=== PATIENT | male | born 1995 ===

== ENCOUNTER 2017-07-06 02:04 | Observation (INO) | payer BC, SELFPAY ==
[2017-07-06 02:52] LABS: #Eosinphils 0.3 thou/uL (0.0-0.7); #Lymphocytes 1.5 thou/uL (1.20-3.40); #Monocytes 0.4 thou/uL (0.11-0.59); #Neutrophils 4.2 thou/uL (1.40-6.50); %Basophils 0.7 % (0.0-1.0); %Eosinophils 4.4 % (0.0-10.0); %Lymphocytes 22.9 % (28.0-48.0); %Monocytes 6.3 % (0.0-4.0); %Neutrophils 65.7 % (31.0-61.0); Hemoglobin 16.1 g/dL (14.0-18.0); Mean Corpuscular HGB CONC 35.2 g/dL (32.0-36.0); Mean Corpuscular Hemoglobin 31.4 pg (25.0-35.0); Mean Corpuscular Volume 89.2 fl (77.0-87.0); Mean Platelet Volume 7.8 fL (7.4-10.4); Platelet Count 247 thou/uL (130-400); RBC Distribution Width 11.4 % (11.5-14.5); Red Blood Cell (RBC) Count 5.12 mill/uL (4.00-5.20); White Blood Cell (WBC) Count 6.4 thou/uL (4.8-10.8)
[2017-07-06 03:11] LABS: Amphetamine Not Detected (NotDetected); Barbiturates Screen Not Detected (NotDetected); Benzodiazepine Screen Not Detected (NotDetected); Cocaine Metabolite Screen Not Detected (NotDetected); Medtox Control Line Valid? VALID (VALID); Medtox Reader # READER 4; Methadone Not Detected (NotDetected); Methamphetamine Not Detected (NotDetected); Opiate Screen Not Detected (NotDetected); Oxycodone Screen Not Detected (NotDetected); Phencyclidine (PCP) Not Detected (NotDetected); THC/Cannabinoid Screen Not Detected (NotDetected); Tricyclic Screen Not Detected (NotDetected)
[2017-07-06 03:11] LABS: Acetaminophen Less than 6.0 mcg/mL (10.0-30.0); Alcohol 262 mg/dL (Less than 10); Salicylate Less than 8.0 mg/dL (15.0-30.0)
[2017-07-06 03:23] LABS: ALT (SGPT) 44 U/L (8-55); AST (SGOT) 63 U/L (5-34); Albumin 4.6 g/dL (3.5-5.0); Alcohol 261 mg/dL (Less than 10); Alkaline Phosphatase 77 U/L (Less than 750); Anion Gap 16 mmol/L (10-20); BUN (Urea Nitrogen) 10 mg/dL (8.9-20.6); Bilirubin, Total 0.8 mg/dL (0.2-1.2); Calc. Creatinine Clearance 0 mL/min (70-130); Calcium 9.7 mg/dL (7.8-10.44); Carbon Dioxide 25 mmol/L (22-29); Chloride 105 mmol/L (98-107); Estimated GFR-MDRD Greater than 90; Globulin 2.9 g/dL (2.4-3.5); Glucose 107 mg/dL (70-105); Potassium 3.7 mmol/L (3.5-5.1); Protein, Total 7.5 g/dL (6.0-8.3); Sodium 142 mmol/L (136-145)
[2017-07-06 03:53] LABS: Lipase 13 U/L (8-78)
[2017-07-06 04:06] LABS: CK (CPK) 5549 U/L (30-200)
[2017-07-06 06:18] VITALS: BMI 25.4
[2017-07-06] MEDS ORDERED: Ondansetron ODT 4 MG TAB PO PRN (06:28)
[2017-07-06] MEDS ORDERED: Bisacodyl 5 MG TAB PO PRN (06:28)
[2017-07-06] MEDS ORDERED: Acetaminophen 325 MG TAB PO PRN (06:28)
[2017-07-06] MEDS ORDERED: Mag-Al 1200 mg/1200 mg/30 ML UDCUP PO PRN (06:28)
[2017-07-06] MEDS ORDERED: Sodium Chloride 0.9% 1,000 ML IV SCH (06:30)
[2017-07-06] MEDS ORDERED: FLU VACC QS2017-18 36 mo. & older 0.5 ML SYRINGE IM ONE (06:45)
[2017-07-06 06:58] LABS: Bilirubin Negative (Negative); Blood, Urine Trace (Negative); Clarity CLEAR (Clear); Glucose, Urine (Dipstick) Negative (Negative); Leukocyte Negative (Negative); Nitrite Negative (Negative); Protein, Urine (Dipstick) Negative (Neg-Trace); Specific Gravity, Urine 1.006 (1.002-1.036); Urobilinogen 0.2 mg/dL (0.2-1.0)
[2017-07-06 07:00] LABS: Bacteria/HPF None Seen HPF (None Seen); Hyaline Casts/LPF 0-3 HYALINE CAST LPF (0-3 Hyaline); Pathc Cast-AUWi Flag 0.13 (0-2.49); RBC/HPF None Seen HPF (0-3); Squamous Epithelial 0-3 HPF (0-3); WBC/HPF 0-3 HPF (0-3)
[2017-07-06] MEDS: Sodium Chloride 0.9% 1,000 ML IV SCH ×4 (07:08→21:49)
[2017-07-06 07:13] LABS: Renal Epithelial 0-3 HPF (0-3); Transitional Epithelial 0-3 HPF (0-3)
--- NOTE | 2017-07-06 07:24 | PDOC.EVN ---
Attending Addendum - Attending Addendum I personally evaluated the patient and discussed the management with Dr. Hari Ramírez/Erickson Garner. I agree with the History, Examination, Assessment and Plan documented in the dictated H&P with any addition or exceptions noted below. Patient with no sig PMH presenting with alcohol intoxication. Patient had fall from ground level while intoxicated though he does not remember it. Mentation overall normal immediately afterward per EMS, though patient did refuse to answer some questions. In ER, he had CT brain which was NAD and CT C spine that did not show any deformity. He is still highly intoxicated with EtOH level of 262. He is currently sleepy. Vitals overall normal, and largest lab abnml is EtOH level and CK of 5000. He has no muscle soreness. UA pending, and renal function appears normal. Patient will be admitted for mild Rhabdomyolysis. UA pending to ensure no evidence of myoglobinuria or renal casts. High IVF rate to obtain UOP of 200-300 cc/hr. Trend CK. Once his EtOH is normal, should be able to clear his C-spine of any midline tenderness and remove C collar. Pain control as needed. Recheck AST/ALT tommorrow as current elevation likely 2/2 alcohol effects.
--- NOTE | 2017-07-06 07:44 | CT ---
PRELIMINARY REPORT/[facility]/EMERGENCY AFTER HOURS PROCEDURE: EXAM: CT Head Without Intravenous Contrast CLINICAL HISTORY: 21 years old, male; Signs and symptoms; Altered mental status/memory loss; Other: ETOH; Patient HX: ETOH, S/P fall TECHNIQUE: Axial computed tomography images of the head/brain without intravenous contrast. COMPARISON: No relevant prior studies available. FINDINGS: Brain: Unremarkable. No hemorrhage. No significant white matter disease. No edema. Ventricles: Unremarkable. No ventriculomegaly. Bones/joints: Unremarkable. No acute fracture. Soft tissues: Unremarkable. Sinuses: Incidental sinus mucosal thickening present. No fluid levels to indicate sinusitis. Mastoid air cells: Unremarkable as visualized. No mastoid effusion. IMPRESSION: No intracranial hemorrhage. Thank you for allowing us to participate in the care of your patient. Dictated and Authenticated by: Tan Miranda MD 07/06/2017 4:04 AM Central Time ([place] & [place]) FINAL REPORT BRAIN CT WITHOUT IV CONTRAST: EMERGENCY AFTER HOURS EXAM TIME: 3:33 a.m. DATE: 07/06/17. No mass or bleed or other significant acute intracranial process. Minimal sinus mucosal disease. POS: BONNIE
[2017-07-06 09:36] LABS: Anion Gap 10 mmol/L (10-20); BUN (Urea Nitrogen) 8 mg/dL (8.9-20.6); CK (CPK) 3780 U/L (30-200); Calc. Creatinine Clearance 174 mL/min (70-130); Calcium 8.9 mg/dL (7.8-10.44); Carbon Dioxide 28 mmol/L (22-29); Chloride 110 mmol/L (98-107); Estimated GFR-MDRD Greater than 90; Glucose 92 mg/dL (70-105); Potassium 3.8 mmol/L (3.5-5.1); Sodium 144 mmol/L (136-145)
--- NOTE | 2017-07-06 13:06 | CT ---
PRELIMINARY REPORT/[facility]/EMERGENCY AFTER HOURS PROCEDURE: EXAM: CT Cervical Spine Without Intravenous Contrast EXAM DATE/TIME: Exam ordered 07/06/2017 3:32 AM CLINICAL HISTORY: 21 years old, male; Signs and symptoms; Altered mental status/memory loss; Other: ETOH; Patient HX: ETOH, S/P fall TECHNIQUE: Axial computed tomography images of the cervical spine without intravenous contrast. COMPARISON: No relevant prior studies available. FINDINGS: Vertebrae: Unremarkable. No acute fracture. Discs/spinal canal/neural foramina: No acute findings. No spinal canal stenosis. Soft tissues: Unremarkable. Lung apices: Unremarkable as visualized. IMPRESSION: Normal cervical spine CT. Thank you for allowing us to participate in the care of your patient. Dictated and Authenticated by: Tan Miranda MD 07/06/2017 4:04 AM Central Time ([place] & [place]) FINAL REPORT CERVICAL SPINE CT SCAN WITHOUT IV CONTRAST: EMERGENCY AFTER HOURS EXAM TIME: 3:34 a.m. DATE: 07/06/17. No fracture, facet dislocation, or other acute process. Mild sinus mucosal disease. POS: BONNIE
--- NOTE | 2017-07-06 15:13 | HP-2 ---
DATE OF ADMISSION: 07/06/2017 CODE STATUS: FULL. PRIMARY CARE PHYSICIAN: Elizabeth eagle. ATTENDING: Dr. Rodriguez. RESIDENT: Dr. Jonas Ramírez. HISTORIAN: Patient. CHIEF COMPLAINT: Status post fall. HISTORY OF PRESENT ILLNESS: This is a 21-year-old male with no known past medical history, who presents via EMS after a witnessed fall after drinking alcohol last night at [place]. Patient does not remember the fall. He came in via EMS. He says he was just having fun at [place]. He was sleeping, but arousable. Initially had a GCS via EMS of 7; when reevaluated he had GCS of 14. In the ER, he received 1 liter of normal saline. PAST MEDICAL HISTORY: Denies. PAST SURGICAL HISTORY: Unknown. ALLERGIES: No known drug allergies. MEDICATIONS: None. FAMILY HISTORY: Noncontributory. SOCIAL HISTORY: Unable to assess. REVIEW OF SYSTEMS: General: Denies fevers and chills. HEENT: Denies vision changes or nasal congestion. Respiratory: Denies cough or congestion. Cardiovascular: Denies chest pain or palpitations. Gastrointestinal: Denies nausea or vomiting. Genitourinary: Denies incontinence or dysuria. Skin: Denies rashes or lesions. Musculoskeletal: Denies pain or tenderness. Neurologic: Denies weakness or numbness. Psychiatric: Denies anxiety or depression. PHYSICAL EXAMINATION: VITAL SIGNS: Blood pressure 115/71, pulse of 70, respiratory rate 18, T-max 97.7, pulse ox 96% on room air. GENERAL: Not alert, oriented, sleeping, but arousable, and following commands. In no apparent distress. NECK: Supple. No thyromegaly. CARDIOVASCULAR: Regular rate and rhythm. No murmur, rub, or gallop. RESPIRATORY: Normal effort. Clear to auscultation bilaterally. SKIN: Warm and dry. ABDOMEN: Soft and nontender to palpation. EXTREMITIES: No clubbing, cyanosis, or edema. MUSCULOSKELETAL: Structure within normal limits. NEUROLOGIC: C-collar in place. GCS of 14. Follows commands. LABORATORY DATA: 1. CBC: 6.4, 16.1, 49.7, 247. 2. CMP: 142, 2.7, 105, 25, 10, 0.81, 107. 3. GFR over 90. 4. AST, ALT, alkaline phosphatase 63, 44, 77. 5. Lipase 13. 6. CK 5549. 7. Blood alcohol level 262. 8. UDS negative. 9. CT brain negative for acute intracranial bleed. 10. Cervical spine negative for acute fracture. ASSESSMENT AND PLAN: This is a 21-year-old male with no past medical history, presents status post witnessed fall after drinking alcohol at [place], admitted for toxic encephalopathy 2/2 alcohol intoxication and rhabdomyolysis. 1. Toxic encephalopathy 2/[address] the patient on CLAU protocol. He currently has a C-collar in place, which can be cleared once the patient is awake. His CT of the cervical spine and head ct were negative for a fracture or bleed. We will recheck an alcohol level early this afternoon. Patient's UDS is negative. 2. Rhabdomyolysis. We will place the patient on normal saline at 200 mL an hour. We will recheck a CK in 6 hours. 3. Reported fall secondary to alcohol intoxication. Patient's CT brain and cervical spine were negative. The patient was placed on CLAU protocol with C- collar in place. This will be cleared when he is awake this afternoon. 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 DISPOSITION AND LENGTH OF HOSPITAL STAY: One day. Symptomatic medications will be provided. History and physical exam as well as management discussed with Dr. Rodriguez. DOUGLAS
[2017-07-07] MEDS: Sodium Chloride 0.9% 1,000 ML IV SCH ×5 (03:14→19:17)
[2017-07-07 05:11] LABS: #Eosinphils 0.4 thou/uL (0.0-0.7); #Lymphocytes 2.1 thou/uL (1.20-3.40); #Monocytes 0.5 thou/uL (0.11-0.59); #Neutrophils 2.1 thou/uL (1.40-6.50); %Basophils 0.4 % (0.0-1.0); %Eosinophils 7.4 % (0.0-10.0); %Monocytes 10.1 % (0.0-4.0); %Neutrophils 41.1 % (31.0-61.0); Hemoglobin 13.4 g/dL (14.0-18.0); Mean Corpuscular HGB CONC 35.1 g/dL (32.0-36.0); Mean Corpuscular Hemoglobin 31.5 pg (25.0-35.0); Mean Corpuscular Volume 89.7 fl (77.0-87.0); Mean Platelet Volume 7.9 fL (7.4-10.4); Platelet Count 181 thou/uL (130-400); RBC Distribution Width 11.2 % (11.5-14.5); Red Blood Cell (RBC) Count 4.26 mill/uL (4.00-5.20); White Blood Cell (WBC) Count 5.1 thou/uL (4.8-10.8)
[2017-07-07 05:26] LABS: ALT (SGPT) 35 U/L (8-55); AST (SGOT) 40 U/L (5-34); Albumin 3.5 g/dL (3.5-5.0); Alkaline Phosphatase 67 U/L (Less than 750); Anion Gap 10 mmol/L (10-20); BUN (Urea Nitrogen) 10 mg/dL (8.9-20.6); Bilirubin, Total 1.2 mg/dL (0.2-1.2); Calc. Creatinine Clearance 166 mL/min (70-130); Calcium 8.9 mg/dL (7.8-10.44); Carbon Dioxide 26 mmol/L (22-29); Chloride 106 mmol/L (98-107); Estimated GFR-MDRD Greater than 90; Globulin 2.2 g/dL (2.4-3.5); Glucose 89 mg/dL (70-105); Magnesium 1.7 mg/dL (1.7-2.2); Potassium 3.9 mmol/L (3.5-5.1); Protein, Total 5.7 g/dL (6.0-8.3); Sodium 138 mmol/L (136-145)
--- NOTE | 2017-07-07 06:56 | PDOC.FM ---
- Subjective Subjective: Patient doing well this AM. No significant overnight events. Spoke with patient regarding activities leading up to hospitalizations. He states he has been working out more often lately and taking pre-workout supplements prior to working out. He is uncertain what the supplements contain, but he thinks it may have creatine. Additionally, patient went out drinking the night before admission and cannot recall all events of that night. He did experience a reported fall. His EtOH level was 260. Patient denies any muscle weakness or pain. - Objective MAR Reviewed: Yes Vital Signs & Weight: Vital Signs (12 hours) Temp Pulse Resp BP Pulse Ox 07/06/17 23:42 98.3 F 96 20 120/78 96 07/06/17 20:00 98.7 F 107 H 20 134/76 99 07/06/17 19:52 98.7 F 107 H 20 Weight Weight 79.469 kg I&O: 07/05/17 07/06/17 07/07/17 06:59 06:59 06:59 Intake Total 4880 Output Total 1350 Balance 3530 Result Diagrams: 07/07/17 04:38 07/07/17 04:38 EKG Reviewed by me: Yes Radiology Reviewed by me: Yes <Lillie Sandoval - Last Filed: 07/07/17 08:31> - Objective Vital Signs & Weight: Vital Signs (12 hours) Temp Pulse Resp BP BP Pulse Ox 07/07/17 08:00 98.3 F 64 16 119/70 99 07/06/17 23:42 98.3 F 96 20 120/78 96 Weight Weight 79.469 kg I&O: 07/06/17 07/07/17 07/08/17 06:59 06:59 06:59 Intake Total 4880 Output Total 1350 Balance 3530 Result Diagrams: 07/07/17 04:38 07/07/17 04:38 <John Bejarano - Last Filed: 07/07/17 10:37> Phys Exam - Physical Examination Constitutional: NAD diaphoretic (hot in room) HEENT: moist MMs, sclera anicteric Neck: supple Respiratory: no wheezing, no rales, no rhonchi, clear to auscultation bilateral Cardiovascular: RRR, no significant murmur Gastrointestinal: soft, non-tender, no distention, positive bowel sounds Musculoskeletal: pulses present Neurological: non-focal, moves all 4 limbs Psychiatric: normal affect, A&O x 3 Skin: no rash, cap refill <2 seconds <Lillie Sandoval - Last Filed: 07/07/17 08:31> Dx/Plan (1) Toxic encephalopathy Code(s): G92 - TOXIC ENCEPHALOPATHY Status: Resolved (2) Alcohol intoxication Status: Acute (3) Rhabdomyolysis Code(s): M62.82 - RHABDOMYOLYSIS Status: Acute - Plan Plan: 1. Acute encephalopathy 2/2 alcohol intoxication - EtOH on admission 261 - EtOH yesterday at 14:00 was 66 - Resolved 2. Rhabdomyolysis - On IVF NS @ 200 ml/hr - Continue to trend CK - CK on admission >5000. CK yesterday afternoon >4000 - Repeat CK this AM - Counseled on working out excessively and avoiding supplements 3. s/p ground level fall - CT head and cervical spine negative for any acute findings - C-spine collar removed yesterday Dispo: Stable. D/C once CK trending down to reasonable level. <Lillie Sandoval - Last Filed: 07/07/17 08:31> Attending Addendum - Attending Addendum I personally evaluated the patient and discussed the management with Dr. Tillman. I agree with the History, Examination, Assessment and Plan documented above with any addition or exceptions noted below. A&Ox4. Vitals Stable. Unsure if LOC was result of head trauma (i.e. concussion ) vs. ETOH intoxication. Clarify to determine if RTP protocol should be initiated as OP. OK to d/c this pm. if CPK in 1000's and trending down. <John Bejarano - Last Filed: 07/07/17 10:37>
[2017-07-07] MEDS ORDERED: Sodium Chloride 0.9% 1,000 ML IV SCH (14:00)
[2017-07-07 16:55] VITALS: BP 137/87; TEMP 98.4
--- NOTE | 2017-07-08 11:23 | DIS-2 ---
DATE OF ADMISSION: 07/06/2017 DATE OF DISCHARGE: 07/07/2017 ADMITTING ATTENDING: Dr. Donnie Rodriguez. DISCHARGE ATTENDING: Dr. John Bejarano. RESIDENT: Dr. Lillie Sandoval. CONSULTS: None. PROCEDURES: 1. Brain CT, no intracranial hemorrhage. 2. Normal cervical spine CT. PRIMARY DIAGNOSES: 1. Acute encephalopathy secondary to alcohol intoxication. 2. Rhabdomyolysis. 3. Status post ground level fall. DISCHARGE MEDICATIONS: None. HISTORY OF PRESENT ILLNESS AND HOSPITAL MEDICATIONS: This is a 21-year-old male with no known past medical history who presented via EMS after a witnessed fall. He was apparently drinking alcohol last night at [place]. The patient does not remember the fall; however, in the report, the patient had stumbled and was apparently helped to the ground gracefully as he fell. The patient did state he was just having fun at [place]. He was sleeping, but arousable on initial exam and had an initial GCS via EMS of 7. When reevaluated, the patient had a GCS of 14. In the ER, he was given a liter of normal saline. The patient remained stable throughout the course of his hospital stay. His alcohol level downtrended from 260 to 66 at which point the C-collar was removed as there was no evidence of any fractures on CT of the spine. The patient's creatinine kinase level was initially 5549 and that did down trend into the 2000s after being placed on normal saline at 200 mL per hour and being given an additional liter of normal saline prior to discharge. Of note, UDS was negative and at no point did the patient complain of muscle aches or pains. He was able to ambulate without any difficulty. A prolonged discussion with the patient did reveal that he had been working out more frequently than usual and lifting heavier weights. It was discussed that this could also contribute to elevations in CK. He was also advised to quit taking supplementation, which contains creatine. Patient was agreeable to this and he understood the consequences of continuing to take supplements. As the patient does not have a primary care physician, it was advised that he follow up with [facility] for reevaluation in a couple of weeks. He was concerned about his workout regimen and that it might be too intense. It was advised that he follow up and have a CK checked after he is on his workout regimen for a period of time. The patient was in understanding and agreeable to follow up. Additionally, he is aware of the risks of drinking in excess and was counseled to limit alcohol intake. DISPOSITION: Stable. DISCHARGE INSTRUCTIONS: 1. Location: Home. 2. Activity: No restrictions. 3. Diet: Regular. 4. Followup: The patient is to follow up with [facility] within 7- 10 days of discharge to ensure resolution/improvement in symptoms. Patient was in understanding of the necessity for followup and was agreeable. DOUGLAS
== END 2017-07-07 19:12 | disposition home or self-care (01) ==
LOC: ERS 02:04 → T4-B 05:05
PROVIDERS: ADMIT Student in an Organized Health Care Education/Training Program; ATTEND Student in an Organized Health Care Education/Training Program
DX: F10.129 Alcohol abuse with intoxication, unspecified (principal); G92 Toxic encephalopathy; M62.82 Rhabdomyolysis; W18.30XA Fall on same level, unspecified, initial encounter; Y90.8 Blood alcohol level of 240 mg/100 ml or more
CPT/HCPCS: 36415; 36416; 51701; 70450; 72125; 80053; 80306; 80307; 81003; 81015; 82550; 83690; 83735; 84100; 85025; 93005; 96360; 96361; G0378